=== PATIENT | male | born 1985 | race African-American/Black ===

== ENCOUNTER 2024-08-12 20:15 | Emergency (ER) | payer MEDICAID, OTHER ==
[~2024-08-12] VITALS: Ht 182.9 cm; Wt 204.0 kg
[2024-08-12 20:19] VITALS: O2SAT 98
[2024-08-12 21:20] VITALS: BP 171/93; PULSE 98; RESP 18; TEMP 36.7; O2SAT 97
[2024-08-12] MEDS ORDERED: AZIT250T12 MT (21:27)
[2024-08-12] MEDS ORDERED: POLY10DR18 EACHEYE (21:34)
== END 2024-08-12 21:36 | disposition home or self-care (01) ==
LOC: ER 20:15
DX: H66.91 Otitis media, unspecified, right ear (principal); Z88.0 Allergy status to penicillin
CPT/HCPCS: 99283